=== PATIENT | female | born 1985 ===

== ENCOUNTER 2017-05-26 11:29 | Observation (INO) | payer BC ==
[2017-05-26 11:35] VITALS: BP 93/52; PULSE 51; RESP 16; TEMP 97.9; O2SAT 100; BMI 21.5
[2017-05-26] MEDS ORDERED: Sodium Chloride 0.9% 1,000 ML IV STA (12:00)
--- NOTE | 2017-05-26 12:07 | ED PDOC ---
HPI: Abdomen Time Seen by Provider: 05/26/17 11:45 Chief Complaint (Nursing): Abdominal Pain Chief Complaint (Provider): Vaginal bleeding History Per: Patient History/Exam Limitations: no limitations Onset/Duration Of Symptoms: Days (2), Intermittent Episodes Associated Symptoms: denies: Nausea, Vomiting, Diarrhea, Chest Pain, Urinary Symptoms Additional Complaint(s): Patient is a 32 y/o female with no significant past medical history presenting to the emergency department for mild intermittent vaginal bleeding ongoing for two days with associated mild cramping pain in her left lower pelvic region. Reports that the bleeding has currently stopped. Denies urinary complaints, chest pain, shortness of breath, nausea, vomiting, diarrhea, or other complaints. 6 wks preg. PCP: Dr. Piotr Agrawal Past Medical History Reviewed: Historical Data, Nursing Documentation, Vital Signs Vital Signs: Last Vital Signs Temp 97.9 F 05/26/17 11:34 Pulse 51 L 05/26/17 11:34 Resp 16 05/26/17 11:34 BP 93/52 L 05/26/17 11:34 Pulse Ox 100 05/26/17 13:35 - Medical History Other PMH: 1 miscarriage - Surgical History Surgical History: No Surg Hx - Family History Family History: States: Unknown Family Hx - Social History Current smoker - smoking cessation education provided: No Ex-Smoker (has not smoked in the last 12 months): No Alcohol: None Drugs: Denies - Allergies Allergies/Adverse Reactions: Allergies Allergy/AdvReac Type Severity Reaction Status Date / Time No Known Allergies Allergy Verified 05/26/17 11:58 Review of Systems ROS Statement: Except As Marked, All Systems Reviewed And Found Negative Cardiovascular: Negative for: Chest Pain Respiratory: Negative for: Shortness of Breath Gastrointestinal: Negative for: Nausea, Vomiting, Abdominal Pain, Diarrhea Genitourinary Female: Positive for: Vaginal Bleeding (mild, intermittent. Currently not present.), Pelvic Pain (left lower). Negative for: Dysuria, Frequency, Hematuria Neurological: Negative for: Weakness Physical Exam - Reviewed Nursing Documentation Reviewed: Yes Vital Signs Reviewed: Yes - Physical Exam Appears: Positive for: Well, Non-toxic, No Acute Distress Head Exam: Positive for: ATRAUMATIC, NORMAL INSPECTION, NORMOCEPHALIC Skin: Positive for: Normal Color, Warm, Dry Eye Exam: Positive for: Normal appearance Neck: Positive for: Normal, Painless ROM, Supple Cardiovascular/Chest: Positive for: Regular Rate, Rhythm. Negative for: Murmur Respiratory: Positive for: Normal Breath Sounds. Negative for: Accessory Muscle Use, Respiratory Distress Gastrointestinal/Abdominal: Positive for: Normal Exam, Soft. Negative for: Tenderness Pelvic Exam: Positive for: Other (mild tenderness in the left lower pelvic area) Back: Positive for: Normal Inspection. Negative for: L CVA Tenderness, R CVA Tenderness Extremity: Positive for: Normal ROM. Negative for: Pedal Edema Neurologic/Psych: Positive for: Alert, Oriented (x3) - Laboratory Results Result Diagrams: 05/26/17 12:30 05/26/17 12:30 Interpretation Of Abn Labs: o post - ECG O2 Sat by Pulse Oximetry: 100 (RA) Pulse Ox Interpretation: Normal - CT Scan/US US Other Rad Studies (CT/US): Read By Radiologist Other Rad Interpretation: SLIUP Medical Decision Making Medical Decision Making: Time: 11:59 Initial impression: Vaginal bleeding Initial plan: Type and Screen Labs ED Urine Urine Dip Normal Saline 1 L IV ED Obs Ultrasound OB Ultrasound OB Transvaginal Reevaluation 13:31 Ultrasound OB Transvaginal reviewed. Findings noted as follows: UTERUS: Measures 8.3 x 6.2 x 4.5 cm. Normal in size and appearance. No fibroid or other mass lesion seen. ENDOMETRIUM: A gestational sac is identified within the endometrial cavity containing a yolk sac and pole. The decidual reaction is unremarkable with no definite hemorrhage seen related. Based on a mean crown-rump length measurement is 0.38 cm, the estimated ultrasonic age is 6 weeks 0 days compared to 6 weeks 4 days based on LMP 04/10/2017. Both dates are in agreement. cardiac activity is measured at 112 beats per minute. CERVIX: No cervical abnormality identified. RIGHT OVARY: Measures 2.2 x 2.5 x 1.2 cm. No solid mass. Normal flow. LEFT OVARY: Measures 3.4 x 2.5 x 2.0 cm. No solid mass. Normal flow. FREE FLUID: No significant free fluid noted. OTHER FINDINGS: None. IMPRESSION: Single viable intrauterine gestation with average of the age of 6 weeks 0 days and recorded cardiac activity of 112 beats per minute. No suspicious hemorrhage appreciated related. Clinical and sonographic follow-up are advised as indicated. Scribe Attestation: Documented by Danna Da Silva, acting as a scribe for Jere Voss MD. Provider Scribe Attestation: All medical record entries made by the Scribe were at my direction and personally dictated by me. I have reviewed the chart and agree that the record accurately reflects my personal performance of the history, physical exam, medical decision making, and the department course for this patient. I have also personally directed, reviewed, and agree with the discharge instructions and disposition. ED OBSERVATION Discharge: Yes Date of observation admission: 05/26/17 Time of observation admission: 12:00 - Observation admission statement Patient is being placed in observation because:: Vaginal bleeding evaluation. - Goals of Observation Goals of observation are:: bleeding eval - Progress Note Progress Note: 05/26/17 12:00 Patient's condition is stable. Labs and ultrasound pending. 05/26/17 13:31 Patient's condition remains stable. Labs and ultrasound report pending. 05/26/17 13:47 Stable. AAOx3. Pain free. SLIUP. Fu with obgyn. Tolerated PO. Disposition - Clinical Impression Clinical Impression: Threatened miscarriage - Patient ED Disposition Is Patient to be Admitted: No Counseled Patient/Family Regarding: Studies Performed, Diagnosis, Need For Followup - Disposition Disposition: Routine/Home Disposition Time: 13:00 Condition: STABLE
[2017-05-26 12:41] LABS: BASO % 0.5 % (0.0-2.0); EOS # 0.2 K/uL (0.0-0.7); HEMATOCRIT 36.1 % (34.0-47.0); LYMPH # 2.7 K/uL (1.0-4.3); LYMPH % 31.8 % (20.0-40.0); MEAN CELL VOLUME 81.1 fl (81.0-99.0); MEAN CORPUSCULAR HEMOGLOBIN 26.2 pg (27.0-31.0); MEAN CORPUSCULAR HGB CONC 32.2 g/dL (33.0-37.0); MEAN PLATELET VOLUME 9.1 fl (7.2-11.7); MONO # 0.7 K/uL (0.0-0.8); MONO % 7.9 % (0.0-10.0); NEUT # 4.8 K/uL (1.8-7.0); NEUT % 57.8 % (50.0-75.0); RED CELL DISTRIBUTION WIDTH 13.6 % (11.5-14.5); WHITE BLOOD COUNT 8.4 K/uL (4.8-10.8)
[2017-05-26 12:59] LABS: BLOOD UREA NITROGEN 15 mg/dl (7-17); CARBON DIOXIDE 23 mmol/L (22-30); CHLORIDE 102 mmol/L (98-107); GFR AFRICAN-AMERICAN > 60; GLUCOSE,RANDOM 83 mg/dL (65-105); POTASSIUM 3.7 MMOL/L (3.6-5.0); SODIUM 136 mmol/l (132-148)
--- NOTE | 2017-05-26 13:33 | US ---
HISTORY: preg and pain COMPARISON: None available. TECHNIQUE: Transabdominal and transvaginal under to longitudinal and transverse images have been acquired. FINDINGS: UTERUS: Measures 8.3 x 6.2 x 4.5 cm. Normal in size and appearance. No fibroid or other mass lesion seen. ENDOMETRIUM: A gestational sac is identified within the endometrial cavity containing a yolk sac and pole. The decidual reaction is unremarkable with no definite hemorrhage seen related. Based on a mean crown-rump length measurement is 0.38 cm, the estimated ultrasonic age is 6 weeks 0 days compared to 6 weeks 4 days based on LMP 04/10/2017. Both dates are in agreement. cardiac activity is measured at 112 beats per minute. CERVIX: No cervical abnormality identified. RIGHT OVARY: Measures 2.2 x 2.5 x 1.2 cm. No solid mass. Normal flow. LEFT OVARY: Measures 3.4 x 2.5 x 2.0 cm. No solid mass. Normal flow. FREE FLUID: No significant free fluid noted. OTHER FINDINGS: None. IMPRESSION: Single viable intrauterine gestation with average of the age of 6 weeks 0 days and recorded cardiac activity of 112 beats per minute. No suspicious hemorrhage appreciated related. Clinical and sonographic follow-up are advised as indicated.
== END 2017-05-26 14:13 | disposition home or self-care (01) ==
LOC: H.ER 11:29 → H.EROBSV 11:59
PROVIDERS: ADMIT Emergency Medicine; ATTEND Emergency Medicine
DX: O20.0 Threatened abortion (principal); Z3A.01 Less than 8 weeks gestation of pregnancy
CPT/HCPCS: 76817; 80048; 81025; 84702; 85025; 86850; 86900; 96360; 99283; G0378; J7040